=== PATIENT | female | born 1970 | race Two or more races ===

== ENCOUNTER 2019-09-08 10:25 | Outpatient (CLI) | payer MEDICAID ==
[~2019-09-08] VITALS: Ht 160 cm; Wt 54.0 kg
[2019-09-08] MEDS ORDERED: ATORVASTATIN CA20 MG ORAL (12:28)
[2019-09-08 12:29] VITALS: BP 115/84
--- NOTE | 2019-09-08 16:15 | Consultation ---
DATE OF CONSULTATION: 09/08/2019 CHIEF COMPLAINT: Referral for possible colonoscopy. PAST MEDICAL HISTORY: Hypercholesteremia. PAST SURGICAL HISTORY: None. MEDICATIONS: Atorvastatin. FAMILY HISTORY: No family history of GI malignancies. SOCIAL HISTORY: The patient denies any tobacco, alcohol, or drug abuse. ALLERGIES: No known drug allergies. REVIEW OF SYSTEMS: A 10-point review of systems was performed and grossly negative. PHYSICAL EXAMINATION: VITAL SIGNS: Temperature 97.8, blood pressure 115/84, pulse 61, respirations 20 HEENT: Normocephalic and atraumatic. Sclerae are anicteric. NECK: Supple. No evidence of obvious lymphadenopathy. CARDIOVASCULAR: Regular rate and rhythm. Plus S1 and S2. LUNGS: Clear to auscultation bilaterally. ABDOMEN: Positive bowel sounds. Soft and nontender. No rebound. No guarding. No peritoneal sign. EXTREMITIES: No cyanosis, no clubbing, no edema. ASSESSMENT AND PLAN: The patient is a 49-year-old female was referred to us for possible colonoscopy. The patient at this time is . After long discussion with the patient the plan was send the stool for FIT and if it comes back positive, we will schedule her for endoscopy and colonoscopy. Otherwise, the patient to come back at age 56. Darren Niño M.D. DR: Leonard JOB#: [id number] CC:
== END 2019-09-08 12:25 | disposition home or self-care (01) ==
LOC: PAN 10:25
DX: E78.00 Pure hypercholesterolemia, unspecified (principal)
CPT/HCPCS: G0463